=== PATIENT | female | born 1940 | race Asian ===

== ENCOUNTER 2024-10-26 07:24 | Emergency (ER) | payer MEDICARE, OTHER ==
[~2024-10-26] VITALS: Ht 153 cm; Wt 63.2 kg
[~2024-10-26 07:24] MED LIST: ALEN70TA80 PO; ASPI-556 PO; CARV3.1231 PO; MULTIV PO; OMEP20CA12 PO; SIMV10TA97 PO; SUCR1TAB PO; TELM1TAB4 PO; VERA240T16 PO; VIT D PO; ZOLP10TA6 PO
[2024-10-26 07:35] VITALS: TEMP 98
[2024-10-26] MEDS ORDERED: QUET25TA PO (07:46)
[2024-10-26] MEDS ORDERED: CARV-165 PO (07:46)
[2024-10-26] MEDS ORDERED: AMLO-257 PO (07:46)
[2024-10-26] MEDS ORDERED: CYCL-448 PO (07:46)
[2024-10-26] MEDS ORDERED: PANT-31 PO (07:46)
[2024-10-26] MEDS ORDERED: FURO20TA5 PO (07:46)
[2024-10-26 09:30] VITALS: BP 154/59; PULSE 65; RESP 15; O2SAT 98
== END 2024-10-26 13:08 | disposition home or self-care (01) ==
LOC: EMS 07:24
DX: S00.03XA Contusion of scalp, initial encounter (principal); E78.00 Pure hypercholesterolemia, unspecified; I10 Essential (primary) hypertension; Z86.73 Personal history of transient ischemic attack (TIA), and cerebral infarction without residual deficits; Z79.899 Other long term (current) drug therapy; W01.0XXA Fall on same level from slipping, tripping and stumbling without subsequent striking against object, initial encounter; Y93.89 Activity, other specified; Y92.89 Other specified places as the place of occurrence of the external cause; Y99.8 Other external cause status
CPT/HCPCS: 70450; 99284